=== PATIENT | male | born 1965 | race Caucasian/White ===

== ENCOUNTER 2018-01-21 22:42 | Emergency (ER) | payer OTHER ==
[~2018-01-21] VITALS: Ht 180.3 cm; Wt 67.1 kg
[2018-01-21 22:54] VITALS: BP 134/80; Ht 180.3 cm; Wt 67.1 kg
== END 2018-01-21 23:33 | disposition home or self-care (01) ==
LOC: ED 22:42
DX: L03.211 Cellulitis of face (principal); I10 Essential (primary) hypertension; E11.9 Type 2 diabetes mellitus without complications; E78.00 Pure hypercholesterolemia, unspecified